=== PATIENT | female | born 1935 | race Caucasian/White ===

== ENCOUNTER → 2017-09-19 | Outpatient (CLI) | payer MEDICARE | LOC: M.MRI 13:59 | DX: I67.82 Cerebral ischemia (principal); G31.89 Other specified degenerative diseases of nervous system; Z95.1 Presence of aortocoronary bypass graft ==

== ENCOUNTER → 2018-06-25 | Outpatient (CLI) | payer MEDICARE | LOC: M.RAD 13:41 | DX: Z12.31 Encounter for screening mammogram for malignant neoplasm of breast (principal); M85.851 Other specified disorders of bone density and structure, right thigh; M85.852 Other specified disorders of bone density and structure, left thigh; Z78.0 Asymptomatic menopausal state; Z88.0 Allergy status to penicillin; Z91.040 Latex allergy status ==

== ENCOUNTER 2021-02-01 13:38 | Inpatient (IN) | payer MEDICARE ==
[~2021-02-01] VITALS: Ht 157.5 cm; Wt 81.6 kg
[2021-02-01 13:39] VITALS: BP 139/96
[2021-02-01 13:56] LABS: ABSOLUTE BASOPHILS 0.1 thou/uL (0.0-0.2); ABSOLUTE EOSINOPHILS 0.1 thou/uL (0.0-0.7); ABSOLUTE LYMPHOCYTES 1.3 thou/uL (0.8-5.3); ABSOLUTE MONOCYTES 0.8 thou/uL (0.0-1.2); ABSOLUTE NEUTROPHILS 5.9 thou/uL (1.6-8.1); BASOPHILS 0.9 %; EOSINOPHILS 1.6 %; HEMATOCRIT 38.2 % (37.0-47.0); HEMOGLOBIN 12.9 gm/dL (12.0-15.0); LYMPHOCYTES 15.7 %; MCH 31.8 pg (26.0-34.0); MCHC 33.9 g/dL (28.0-37.0); MCV 93.8 fL (80.0-100.0); MONOCYTES 9.9 %; MPV 8.8 fl. (7.2-11.1); NUCLEATED RBCS 0 /100WBC; PLATELET COUNT* 322 thou/uL (150-400); POLYS 71.9 %; RBC 4.07 mil/uL (4.20-5.00); RDW-CV 13.8 % (10.5-14.5); WBC 8.2 thou/uL (4.0-11.0)
[2021-02-01 14:07] LABS: CALCIUM 8.8 mg/dL (8.5-10.1); CREATININE 0.9 mg/dL (0.6-1.3); POTASSIUM 3.1 mmol/L (3.5-5.1)
[2021-02-01 14:19] LABS: ALBUMIN 2.9 g/dL (3.4-5.0); TOTAL BILIRUBIN 0.7 mg/dL (<0.1-1.0); TOTAL PROTEIN 6.7 g/dL (6.4-8.2)
--- NOTE | 2021-02-01 14:54 | EKG ---
[place] [address] ELECTROCARDIOGRAM REPORT Name: STEPHANIE ANDERSON Room: [facility]#: [id number] Admission: 02/01/21 Attend Phys: Discharge: Date of : 39 Date of Service: 02/01/21 1410 Report #: [id number] THIS REPORT FOR: //name// [facility] ED Test Date: 2021-02-01 Test Time: 14:10:41 Pat Name: STEPHANIE ANDERSON Department: Room: Gender: F Director Of Corporate Sponsorships: [facility] : 1935 Requested By: Sen Abdullahi Order Number: [id number] MD: Jamie Pineda Measurements Intervals [place] Rate: 72 P: 43 MD: 243 QRS: -6 QRSD: 93 T: 162 QT: 437 QTc: 479 Interpretive Statements Sinus rhythm Prolonged MD interval Probable left atrial enlargement LVH with secondary repolarization abnormality Inferior infarct, old Compared to ECG 12/18/2006 10:12:22 First degree AV block now present Electronically Signed On 02-01-2021 14:54:50 CLAIMS PROCESSOR by Jamie Pineda [email or web address] <ELECTRONICALLY SIGNED> By: Jamie Pineda MD, FACC 02/01/21 1454 141 1410 Jamie Pineda MD, [facility] /EPI
[2021-02-01 18:15] VITALS: BP 130/72
[2021-02-01 22:00] VITALS: BP 135/70
[2021-02-02] VITALS (7 sets, daily range): BP systolic 115–145; BP diastolic 59–74
[2021-02-02 04:19] LABS: ANION GAP 9 mmol/L (7-16); BUN 14 mg/dL (7-18); CALCIUM 8.7 mg/dL (8.5-10.1); CHLORIDE 100 mmol/L (98-107); CHOLESTEROL 168 mg/dL (<200); CO2 30 mmol/L (21-32); CREATININE 0.9 mg/dL (0.6-1.3); GLUCOSE 161 mg/dL (70-99); HDL CHOLESTEROL 43 mg/dL (>40); LDL CHOLESTEROL 101 mg/dL (<100); POTASSIUM 3.5 mmol/L (3.5-5.1); SODIUM 139 mmol/L (136-145); TC:HDL 3.9 Ratio (Not establshd); TRIGLYCERIDE 120 mg/dL (<150); VLDL 24 mg/dL (<40)
[2021-02-02 04:24] LABS: SERUM ASSESSMENT CLEAR
--- NOTE | 2021-02-02 08:49 | NUR ---
ALISEMARY ANNE HARPER, PT'S NEIGHBOR, HAS PERMISSION TO TALK TO STAFF REGARDING PT'S POC PER PT. SHE CAN BE REACHED AT [phone].
[2021-02-02] MEDS ORDERED: PRED FORTE 1% EY5 M1 OPHTHALMIC (10:09)
[2021-02-02] MEDS ORDERED: PROTONIX40 M2 PO (10:09)
[2021-02-02] MEDS ORDERED: NORVASC10 MG PO (10:09)
[2021-02-02] MEDS ORDERED: ACYCLOVIR 400400 MG PO (10:10)
[2021-02-02] MEDS ORDERED: TOPROL XL100 MG PO (10:10)
[2021-02-02] MEDS ORDERED: PRINIVIL40 MG PO (10:10)
[2021-02-02] MEDS ORDERED: PRAVASTATIN SOD80 MG PO (10:10)
--- NOTE | 2021-02-02 10:38 | NUR ---
ADMISSION COMPLETED IN ED A BOARDED PATIENT. HEAD TO TOE ASSEMENT NEEDS COMPLETED ONCE PATIENT IS ON THE FLOOR. FOLLOW ED CHARTING FOR VITALS AND ASSESSMENTS UNTIL THEN.
[2021-02-02] MEDS ORDERED: ASA81BEC PO (11:54)
[2021-02-02] MEDS ORDERED: COQ-1030 MG PO (11:55)
[2021-02-02] MEDS ORDERED: VITAMIN D350 MCG PO (11:55)
--- NOTE | 2021-02-02 12:10 | 2DMMODE ---
[place] [address] 2 D/M-MODE ECHOCARDIOGRAM Name: STEPHANIE ANDERSON Room: [facility] [facility].#: [id number] Admission: 02/01/21 Attend Phys: Shad Rico Discharge: Date of : 39 Date of Service: 02/02/21 1210 Report #: [id number] THIS REPORT FOR: cc: Yahaira Abbasi Linda J. DO Liston, Michael J. MD [facility] ~ APPROVED REPORT Study performed: 02/02/2021 10:37:32 EXAM: Comprehensive 2D, Doppler, and color-flow Echocardiogram Patient Location: In-Patient Room #: er Status: routine BSA: 1.83 HR: 74 bpm BP: 125/72 mmHg Rhythm: NSR Other Information Study Quality: Good Indications Congestive Heart Failure 2D Dimensions IVSd: 7.66 (7-11mm) LVOT Diam: 19.19 (18-24mm) LVDd: 50.05 mm PWd: 9.38 (7-11mm) Ascending Ao: 27.73 (22-36mm) LVDs: 46.73 (25-40mm) Aortic Root: 30.58 mm Volumes Left Atrial Volume (Systole) LA ESV Index: 40.50 mL/m2 Aortic Valve AoV Peak Mendez.: 0.92 m/s AO Peak Gr.: 3.36 mmHg LVOT Max P.45 mmHg AO Mean Gr.: 2.18 mmHg LVOT Mean P.81 mmHg LVOT Max V: 0.60 m/s AO V2 VTI: 21.28 cm LVOT Mean V: 0.42 m/s KAN (VTI): 2.02 cm2 LVOT V1 VTI: 14.84 [place] [address] 2 D/M-MODE ECHOCARDIOGRAM Name: STEPHANIE ANDERSON Room: [address] IN .R.#: [id number] Admission: 02/01/21 Attend Phys: Shad Rico Discharge: Date of : 39 Date of Service: 02/02/21 1210 Report #: [id number] Mitral Valve E/A Ratio: 1.18 MV Decel. Time: 178.19 ms MV E Max Mendez.: 1.14 m/s MV PHT: 51.67 ms MVA (PHT): 4.26 cm2 TDI E/Lateral E': 19.00 E/Medial E': 22.80 Medial E' Mendez.: 0.05 m/s Lateral E' Mendez.: 0.06 m/s Pulmonary Valve PV Peak Mendez.: 0.77 m/s PV Peak Gr.: 2.39 mmHg Tricuspid Valve RAP Estimate: 5.00 mmHg TR Peak Gr.: 31.43 mmHg RVSP: 36.00 mmHg PA Pressure: 36.00 mmHg Left Ventricle The left ventricle appears mildly dilated. 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 The mid to apical septum anterior wall and apex is akinetic. There is normal left ventricular wall thickness. Left ventricular systolic function is severely decreased. LVEF is 20-25%. Transmitral Doppler flow pattern suggests restrictive physiology. Right Ventricle The right ventricle is normal size. The right ventricular systolic function is normal. Atria Left atrium is mildly dilated. The right atrium size is normal. Aortic Valve Mild aortic valve sclerosis. No aortic regurgitation is present. There is no aortic valvular stenosis. Mitral Valve There is mitral annular calcification. Trace mitral regurgitation. No evidence of mitral valve stenosis. Tricuspid Valve The tricuspid valve is normal in structure[place] [address] 2 D/M-MODE ECHOCARDIOGRAM Name: STEPHANIE ANDERSON Room: [address] IN [facility]#: [id number] Admission: 02/01/21 Attend Phys: Shad Rico Discharge: Date of : 39 Date of Service: 02/02/21 1210 Report #: [id number] regurgitation. Mild pulmonary hypertension. Pulmonic Valve The pulmonary valve is normal in structure. Mild pulmonic regurgitation. Great Vessels The aortic root is normal in size. IVC is normal in size and collapses >50% with inspiration. Pericardium There is no pericardial effusion. <Conclusion> The left ventricle appears mildly dilated. 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 There is normal left ventricular wall thickness. Left ventricular systolic function is severely decreased. LVEF is 20-25%. Transmitral Doppler flow pattern suggests restrictive physiology. The mid to apical septum anterior wall and apex is akinetic. Left atrium is mildly dilated. Mild aortic valve sclerosis. Trace mitral regurgitation. Mild tricuspid regurgitation. Mild pulmonary hypertension. IVC is normal in size and collapses >50% with inspiration. <ELECTRONICALLY SIGNED> By: Scar Jimenez MD, FACC 02/02/21 121 09 09 Scar Jimenez MD, FACC /INF
--- NOTE | 2021-02-02 12:25 | EKG ---
[place] [address] ELECTROCARDIOGRAM REPORT Name: STEPHANIE ANDERSON Room: [place] [address] ADM IN .R.#: [id number] Admission: 02/01/21 Attend Phys: Shad Rico Discharge: Date of : 39 Date of Service: 02/02/21 0943 Report #: [id number] THIS REPORT FOR: //name// [facility] ED Test Date: 2021-02-02 Test Time: 09:43:52 Pat Name: STEPHANIE ANDERSON Department: Room: [place] [address] Gender: F Digital Photographic Printer: COCO : 1935 Requested By: Jamie Pineda Order Number: [id number] Reading MD: Sacr Jimenez Measurements Intervals [place] Rate: 79 P: 57 LA: 248 QRS: -4 QRSD: 92 T: 161 QT: 416 QTc: 477 Interpretive Statements Sinus rhythm Prolonged LA interval LVH with secondary repolarization abnormality Inferior infarct, old Anterolateral infarct, age indeterminate Compared to ECG 02/01/2021 14:10:41 No significant changes Electronically Signed On 02-02-2021 12:25:03 DIGITAL MEDIA BUYER by Scra Jimenez [email or web address] <ELECTRONICALLY SIGNED> By: Scar Jimenez MD, FACC 02/02/21 1225 0943 Scar Jimenez MD, FAC /EPI
[2021-02-03] VITALS (7 sets, daily range): BP systolic 121–145; BP diastolic 54–68
--- NOTE | 2021-02-03 05:20 | NUR ---
ASSUMED PT CARE AT APPROX 1930. PT IS AWAKE AND ORIENTED X4. PT IS TRACING SR WITH 1D AVB, PT IS SHORT OF AIR WITH ACTIVITY, BUT NO DESATURATIONS NOTED ON 2L OF O2/NC. PT C/O "CHEST PAIN/INDIGESTION" THAT WAS DESCRIBED TO BE CLOSER TO THE ABDOMEN AND IS RADIATING TO THE BACK WHICH LASTED FOR A "MINUTE OR SO" EKG DONE, DR ACOSTA INFORMED. PT REFUSES PAIN MEDS PAIN IS GONE. PROTONIX GIVEN WITH RELIEF. PT IS CLOSELY MONITORED. FALL PRECAUTIONS IN PLACE.
[2021-02-03 09:09] LABS: HEMATOCRIT 38.7 % (37.0-47.0); HEMOGLOBIN 12.9 gm/dL (12.0-15.0); MCH 31.3 pg (26.0-34.0); MCHC 33.2 g/dL (28.0-37.0); MCV 94.5 fL (80.0-100.0); MPV 9.4 fl. (7.2-11.1); RBC 4.1 mil/uL (4.20-5.00); RDW-CV 14.1 % (10.5-14.5); WBC 10.3 thou/uL (4.0-11.0)
[2021-02-03 09:19] LABS: CALCIUM 8.9 mg/dL (8.5-10.1); CREATININE 1.1 mg/dL (0.6-1.3); POTASSIUM 3.9 mmol/L (3.5-5.1)
--- NOTE | 2021-02-03 10:52 | NUR ---
CM COMPLETED INITIAL ASSESSMENT TO DISCUSS DIPSO AND HOME SITUATION. PT LIVES ALONE IN HOUSE W/STAIRS TO BASEMENT TO LAUNDRY ROOM. PT COMPLETED OWN CHORES/LAUNDRY AND INDICATED SHE HAS NO PROBLEMS NAVIGATING THE STAIRS INSIDE HER HOME. PT DRIVES A VEHICLE. PT COMPLETES OWN ADLS. PT DENIES USE ON DMES, OR HX WITH HH/SNF. PT ADMITTED WITH ACUTE SYSTOLIC HEART FAILURE. S/P CABG. LASIX SWITCH TO PO. POSS D/C TOMORROW TO HOME, PT MAY BENEFIT FROM HH. CM FAXED REFRERRAL TO [facility]. [phone].
--- NOTE | 2021-02-03 11:20 | EKG ---
[place] [address] ELECTROCARDIOGRAM REPORT Name: STEPHANIE ANDERSON Room: [address] ADM IN M.R.#: [id number] Admission: 02/01/21 Attend Phys: Shad Rico Discharge: Date of : 39 Date of Service: 02/03/21 0009 Report #: [id number] THIS REPORT FOR: //name// [facility] Test Date: 2021-02-03 Test Time: 00:09:05 Pat Name: STEPHANIE ANDERSON Department: Room: [address] Gender: F Spindle Tester: BXIONG : 1935 Requested By: Shad Rico Order Number: [id number] Reading MD: Jamie Pineda Measurements Intervals [place] Rate: 82 P: 62 NV: 235 QRS: -10 QRSD: 98 T: 154 QT: 421 QTc: 492 Interpretive Statements Sinus rhythm Prolonged NV interval LVH with secondary repolarization abnormality Probable inferior infarct Anterior infarct, old Baseline wander in lead(s) I Compared to ECG 02/02/2021 09:43:52 No significant changes Electronically Signed On 02-03-2021 11:20:29 AUTOMOBILE BUMPER STRAIGHTENER by Jamie Pineda [email or web address] <ELECTRONICALLY SIGNED> By: Jamie Pineda MD, FACC 02/03/21 1120 000 0009 Jamie Pineda MD, FACC /EPI
--- NOTE | 2021-02-03 15:15 | CON ---
[address] [address] CONSULTATION Name: STEPHANIE ANDERSON Room: [address] IN M.R.#: [id number] Admission: 02/01/21 Attend Phys: Angelica Jones Discharge: Date of : 39 Report #: [id number] THIS REPORT FOR: cc: Yahaira Abbasi,Yahaira Campos,Jamie Lisa MD [facility] ~ cc: Yahaira Abbasi DO DATE OF CONSULTATION: 02/01/2021 CARDIOLOGY CONSULTATION HISTORY OF PRESENT ILLNESS: The patient is an 85-year-old single white female who came to the Emergency Room complaining of shortness of breath. The patient notes in 2006, she had quadruple coronary bypass surgery at [facility]. She has been followed by Dr. Angulo since that time. Recently, she has been having increasing shortness of breath and edema. She notes it makes it hard to breathe. She denies chest tightness with exertion, palpitations, syncope, fever or cough. She finally came to the Emergency Room today and is admitted for further evaluation and treatment. PAST MEDICAL HISTORY: She has had tonsillectomy. She has a history of hypertension, hyperlipidemia. CURRENT MEDICATIONS: Consist of metoprolol, lisinopril, aspirin, Pravachol. ALLERGIES: SHE HAS AN ALLERGY TO PENICILLIN. FAMILY HISTORY: Her mom had bypass surgery. SOCIAL HISTORY: She is , lives here in [place]. No smoking, alcohol abuse. REVIEW OF SYSTEMS: She is overweight, being 5 feet 2 inches, 180 pounds. No history of stroke, asthma, liver disease, kidney disease, cancer, psychiatric illness, chronic skin condition. PHYSICAL EXAMINATION: GENERAL: Revealed an elderly female who appeared in no acute distress. VITAL SIGNS: She had a blood pressure of 130/80, pulse is 90. She is afebrile. HEENT: She is anicteric. Conjunctivae pink. Mucous membranes moist. NECK: Veins do not appear distended. No carotid bruits. Neck is supple. CHEST: Revealed decreased breath sounds at the bases. HEART: Regular rate and rhythm. No murmur. ABDOMEN: [place] [address] CONSULTATION Name: STEPHANIE ANDERSON Room: [address]#: [id number] Admission: 02/01/21 Attend Phys: Angelica Jones Discharge: Date of : 39 Report #: [id number] EXTREMITIES: Had trace edema. Dorsalis pedis pulse cannot be palpated. SKIN: Cool and dry. NEUROLOGIC: Nonfocal. LYMPHATIC: No adenopathy. MUSCULOSKELETAL: Joint effusion. LABORATORY DATA: Her ECG on admission showed a sinus rhythm, left ventricular hypertrophy and repolarization changes. Her workup, she had a portable chest x-ray in the Emergency Room that showed cardiomegaly, pulmonary vascular congestion. She actually had a CT scan of the chest using a PE protocol that showed a hiatal hernia, cardiomegaly, no pulmonary embolus, atelectasis, vascular congestion. Her lab work, creatinine 0.9, albumin 2.9. High sensitivity troponin was 566. BNP 8006. Hemoglobin 12.9. Her COVID antigen stat test was negative. IMPRESSION AND RECOMMENDATIONS: 1. Pulmonary edema. I would recommend echocardiogram. I would give Lasix. 2. Coronary artery disease. Borderline troponin. I would not recommend cardiac catheterization at this time. I would continue aspirin a day. 3. Hypertension. The patient is on beta hodan and Jesus inhibitor. 4. Hyperlipidemia. The patient is on a statin drug. 5. Obesity. <ELECTRONICALLY SIGNED> By: Jamie Pineda MD, FACC 02/03/21 1515 151 1905Jamie Pineda MD, FACC /nt
[2021-02-04 00:01] VITALS: BP 153/69
[2021-02-04 03:06] LABS: GLYCOHEMOGLOBIN (HGB A1C) 5.7 % (4.8-5.6)
[2021-02-04 04:00] VITALS: BP 133/56
[2021-02-04 04:58] LABS: CREATININE 1.2 mg/dL (0.6-1.3); POTASSIUM 4.2 mmol/L (3.5-5.1)
--- NOTE | 2021-02-04 05:48 | NUR ---
PT AO X4 LYING IN BED FOR ASSESSMENT. SHE IS MISSING HER DOG AND IS ANXIOUS TO GO HOME SOON. PT LUNGS ARE DIMINISHED THROUGHOUT WITH PT DENYING COUGH. SHE IS ON 1L PER NC WITH SAT>92%. PT HAS 1+EDEMA IN BLE. UP TO BSC WITH STANDBY. BED ALARM ON AND CALL LIGHT WITHIN REACH FOR PT SAFETY
[2021-02-04 09:00] VITALS: BP 132/64
[2021-02-04] MEDS ORDERED: KLOR-CON M2020 MEQ PO (11:29)
[2021-02-04] MEDS ORDERED: SPIRONOLACTONE25 MG PO (11:29)
[2021-02-04] MEDS ORDERED: LASIX 40 MG TAB40 M1 PO (11:29)
[2021-02-04] MEDS ORDERED: LIPITOR 40 MG T40 M1 PO (11:29)
[2021-02-04 12:30] VITALS: BP 129/59
[2021-02-04 16:22] VITALS: BP 124/56
--- NOTE | 2021-02-04 20:45 | NUR ---
PT D/C TO HOME AFTER PASSING REST AND EXERCISE TEST. DAY SHIFT RN COMPLETED D/C AND WENT OVER WITH PT. REMOVED MONITOR AND IV. ALL BELONGINGS GATHERED AND TAKEN BY WHEELCHAIR TO FRIENDS CAR AT [address]. CALLED DR BEFORE DISCHARGE REGARDING 2 STATINS ORDERED, CLARIFIED TO HAVE PT TAKE HOME STATIN, NOT NEW STATIN. PT LEFT IN [facility].
--- NOTE | 2021-02-07 08:08 | EKG ---
[place] [address] ELECTROCARDIOGRAM REPORT Name: STEPHANIE ANDERSON Room: [address] DIS IN M.R.#: [id number] Admission: 02/01/21 Attend Phys: Shad Rico Discharge: 02/04/21 Date of : 39 Date of Service: 02/04/21814 Report #: [id number] THIS REPORT FOR: //name// [facility] Test Date: 2021-02-04 Test Time: 08:15:49 Pat Name: STEPHANIE ANDERSON Department: Room: [address] Gender: F Vocational Training Director: JENNIFER : 1935 Requested By: Jamie Pineda Order Number: [id number] Reading MD: Scar Jimenez Measurements Intervals [place] Rate: 74 P: 39 NH: 229 QRS: 4 QRSD: 108 T: 165 QT: 418 QTc: 464 Interpretive Statements Sinus rhythm Prolonged [place] interval Left atrial enlargement LVH with secondary repolarization abnormality Inferior infarct, old Probable anterior infarct, age indeterminate Compared to ECG 02/03/2021 00:09:05 No significant changes Electronically Signed On 02-07-2021 8:08:45 DRY JANITOR by Scar Jimenez [email or web address] <ELECTRONICALLY SIGNED> By: Scar Jimenez MD, FACC 02/07/21807 4 4 Scar Jimenez MD, FACC /EPI
== END 2021-02-04 20:30 | disposition home or self-care (01) | DRG 291 ==
LOC: M.ERS 13:38 → M.TBA-ER 14:51 → M.ORTHSURG 02-02 15:40
PROVIDERS: Family Medicine; Internal Medicine; Internal Medicine Cardiovascular Disease; ADMIT Internal Medicine; ATTEND Internal Medicine
DX: I11.0 Hypertensive heart disease with heart failure (principal); I50.23 Acute on chronic systolic (congestive) heart failure; J98.11 Atelectasis; Z88.8 Allergy status to other drugs, medicaments and biological substances; Z91.040 Latex allergy status; Z88.0 Allergy status to penicillin; Z95.1 Presence of aortocoronary bypass graft; E11.9 Type 2 diabetes mellitus without complications; K44.9 Diaphragmatic hernia without obstruction or gangrene; I25.10 Atherosclerotic heart disease of native coronary artery without angina pectoris; E78.5 Hyperlipidemia, unspecified; E66.01 Morbid (severe) obesity due to excess calories; Z68.32 Body mass index [BMI] 32.0-32.9, adult; K21.9 Gastro-esophageal reflux disease without esophagitis; Z90.49 Acquired absence of other specified parts of digestive tract; Z20.822 Contact with and (suspected) exposure to COVID-19

== ENCOUNTER 2021-02-28 11:26 | Inpatient (IN) | payer MEDICARE ==
[~2021-02-28] VITALS: Ht 157.5 cm; Wt 76.2 kg
[~2021-02-28 11:26] MED LIST: ACYCLOVIR 400400 MG PO; ASA81BEC PO; COQ-1030 MG PO; KLOR-CON M2020 MEQ PO; LASIX 40 MG TAB40 M1 PO; LIPITOR 40 MG T40 M1 PO; NORVASC10 MG PO; PRAVASTATIN SOD80 MG PO; PRED FORTE 1% EY5 M1 OPHTHALMIC; PRINIVIL40 MG PO; PROTONIX40 M2 PO; SPIRONOLACTONE25 MG PO; TOPROL XL100 MG PO; VITAMIN D350 MCG PO
[2021-02-28 11:27] VITALS: BP 104/48
[2021-02-28] MEDS ORDERED: SPIRONOLACTONE25 MG PO (11:50)
[2021-02-28 12:15] LABS: ABSOLUTE BASOPHILS 0.1 thou/uL (0.0-0.2); ABSOLUTE EOSINOPHILS 0.2 thou/uL (0.0-0.7); ABSOLUTE LYMPHOCYTES 0.7 thou/uL (0.8-5.3); ABSOLUTE MONOCYTES 0.8 thou/uL (0.0-1.2); ABSOLUTE NEUTROPHILS 6.2 thou/uL (1.6-8.1); BASOPHILS 0.9 %; EOSINOPHILS 2.6 %; HEMATOCRIT 42.3 % (37.0-47.0); HEMOGLOBIN 13.7 gm/dL (12.0-15.0); LYMPHOCYTES 8.7 %; MCHC 32.4 g/dL (28.0-37.0); MCV 95.6 fL (80.0-100.0); MONOCYTES 9.9 %; MPV 10.4 fl. (7.2-11.1); NUCLEATED RBCS 0 /100WBC; PLATELET COUNT* 212 thou/uL (150-400); POLYS 77.9 %; RBC 4.43 mil/uL (4.20-5.00); RDW-CV 15.1 % (10.5-14.5); WBC 7.9 thou/uL (4.0-11.0)
[2021-02-28 12:28] LABS: CALCIUM 9.7 mg/dL (8.5-10.1); CREATININE 3.7 mg/dL (0.6-1.3)
--- NOTE | 2021-02-28 12:28 | EKG ---
[place] [address] ELECTROCARDIOGRAM REPORT Name: STEPHANIE ANDERSON Room: [facility]#: [id number] Admission: 02/28/21 Attend Phys: Discharge: Date of : 39 Date of Service: 02/28/21 1131 Report #: [id number] THIS REPORT FOR: //name// [facility] ED Test Date: 2021-02-28 Test Time: 11:31:09 Pat Name: STEPHANIE ANDERSON Department: Room: Gender: F Cosmetics Counter Manager: TJO : 1935 Requested By: Rani Crooks Order Number: [id number] MD: Jamie Pineda Measurements Intervals [place] Rate: 60 P: -17 AR: 219 QRS: -8 QRSD: 110 T: 151 QT: 428 QTc: 428 Interpretive Statements Sinus rhythm Borderline prolonged AR interval LVH with IVCD and secondary repol abnrm Probable inferior infarct Anterolateral infarct, age indeterminate Compared to ECG 02/04/2021 08:15:49 Atrial abnormality no longer present Myocardial infarct finding still present Electronically Signed On 02-28-2021 12:27:54 CHILD CARE SPECIALIST by Jamie Pineda [email or web address] <ELECTRONICALLY SIGNED> By: Jamie Pineda MD, FACC 02/28/21 1227 1131 1131 Jamie Pineda MD, FACC /EPI
[2021-02-28 12:33] LABS: POTASSIUM 6.9 mmol/L (3.5-5.1)
[2021-02-28 12:38] LABS: ALBUMIN 3.6 g/dL (3.4-5.0); MAGNESIUM 2.1 mg/dL (1.8-2.4); TOTAL BILIRUBIN 0.6 mg/dL (<0.1-1.0); TOTAL PROTEIN 7.3 g/dL (6.4-8.2)
--- NOTE | 2021-02-28 17:57 | NUR ---
PATIENT UNABLE TO URINATE, AND ONLY IN SMALL AMOUNTS
[2021-02-28 21:11] VITALS: BP 131/62
[2021-02-28 22:39] LABS: URINE BILIRUBIN NEGATIVE (Negative); URINE BLOOD NEGATIVE (Negative); URINE CLARITY CLEAR; URINE COLOR YELLOW; URINE GLUCOSE-RANDOM NEGATIVE (Negative); URINE KETONES NEGATIVE (Negative); URINE LEUKOCYTES-REFLEX 1+ (Negative); URINE NITRITE-REFLEX NEGATIVE (Negative); URINE PROTEIN NEGATIVE (Negative); URINE UROBILINOGEN 0.2 E.U./dl (0.2-1.0)
[2021-02-28 22:55] LABS: HYALINE CASTS 0-3 Few /LPF (None Seen); SQUAMOUS 0-3 Few /LPF (0-3)
[2021-02-28 22:56] LABS: URINE RBC None Seen /HPF (0-2); URINE WBC-REFLEX 6-15 Few /HPF (0-5)
[2021-02-28 22:57] LABS: CRYSTALS None Seen /LPF (None Seen); RENAL EPITHELIAL CELLS 0-3 Few /LPF (None Seen)
[2021-03-01 02:01] VITALS: BP 102/33
[2021-03-01 04:28] LABS: ALBUMIN 2.9 g/dL (3.4-5.0); CALCIUM 9.3 mg/dL (8.5-10.1); MAGNESIUM 1.9 mg/dL (1.8-2.4); PHOSPHORUS* 3.9 mg/dL (2.5-4.9)
[2021-03-01 05:04] LABS: CREATININE 2.3 mg/dL (0.6-1.3); POTASSIUM 4.8 mmol/L (3.5-5.1)
[2021-03-01 07:44] VITALS: BP 100/43
[2021-03-01 09:54] VITALS: BP 109/46
--- NOTE | 2021-03-01 10:35 | CON ---
[address] [address] CONSULTATION Name: STEPHANIE ANDERSON Room: [address] IN M.R.#: [id number] Admission: 02/28/21 Attend Phys: Angelica Jones Discharge: Date of : 39 Report #: [id number] THIS REPORT FOR: cc: Yahaira Abbasi Linda J. DO Khan,Sasha Lisa MD ~ DATE OF CONSULTATION: 02/28/2021 NEPHROLOGY CONSULTATION REASON FOR CONSULTATION: Acute kidney injury and hyperkalemia. HISTORY OF PRESENT ILLNESS: An 85-year-old female who has no underlying known history of kidney disease, who was hospitalized in January with acute systolic heart failure. She, at that time, was started on Lasix, spironolactone and potassium supplementation and was already on lisinopril. She has had two labs done through her primary physician, Dr. Abbasi and tells me that each time she had been seen, her BUN and creatinine were both increasing. She was referred to [facility] as a new patient and actually to be seen today for the first time in our office; however, has been having weakness and diarrhea for the past 3 days with some reduced intake and upon arrival here was found to have a potassium of 6.9, creatinine 3.7. Denies any NSAID use. Appears to be comfortable, has no other complaints at present time. Denies any recent antibiotics. REVIEW OF SYSTEMS: Constitutional, psych, heme, eyes, ENT, respiratory, cardiac, GI, , endocrine, all negative except as documented above. PAST MEDICAL HISTORY: Coronary artery disease with history of quadruple bypass in 2006, hypertension, dyslipidemia, history of CHF, dyslipidemia. SOCIAL HISTORY: No tobacco. FAMILY HISTORY: Not pertinent in this 85-year-old female. CURRENT MEDICATIONS: Reviewed. PHYSICAL EXAMINATION: VITAL SIGNS: Blood pressure is ____, pulse 66, respirations 16, temperature 36.2. GENERAL: No acute distress. EYES: Open. EARS: Externally normal. NECK: Supple. CARDIOVASCULAR: [place] [address] CONSULTATION Name: STEPHANIE ANDERSON Room: [address] IN [facility]#: [id number] Admission: 02/28/21 Attend Phys: Angelica Jones Discharge: Date of : 39 Report #: [id number] LUNGS: No crackles. GASTROINTESTINAL: Negative. MUSCULOSKELETAL: Nontender. PSYCHIATRIC: Awake, alert. LABORATORY DATA: White cell count 7.9, hemoglobin 13.7, platelets 212. Sodium 131, potassium 6.9, chloride 99, bicarbonate 19, BUN 88, creatinine 3.7, glucose 114, calcium 9.7, magnesium 2.1, albumin 3.6. ASSESSMENT AND PLAN: 1. Acute kidney injury with admission creatinine of 3.7, BUN of 88. On 02/04, creatinine was 1.2 and on 02/01, it was 0.9, this is in the setting of recently starting Lasix, spironolactone and potassium supplement while already being on lisinopril and recently having diarrhea as well as reduced oral intake. Chest x-ray was okay. 2. Hyperkalemia secondary to renal insufficiency, while also newly starting spironolactone, potassium supplement and while also on lisinopril. 3. Mild hyponatremia, possibly component of volume depletion. 4. Metabolic acidosis with a CO2 of 19 on admission, in the setting of diarrhea. 5. Coronary artery disease with history of 4-vessel CABG in 2006. 6. Diabetes. 7. Hypertension. 8. Congestive heart failure with reduced systolic function and EF of 20-25% in 01/2021. Echo with mild pulmonary hypertension. PLAN: 1. We will hydrate with half normal saline and sodium bicarbonate. 2. We will recheck potassium later this evening. 3. Two gram dietary potassium restriction. 4. Check renal ultrasound. 5. Check UA. 6. Hold spironolactone, potassium supplement, Lasix and lisinopril. 7. Check UA with micro along with magnesium. 8. Diarrhea management per primary service. We will follow along with you. Thank you for requesting my opinion in the care and management of this patient. <ELECTRONICALLY SIGNED> By: Sasha Tim MD 03/01/21 1035 1228 [id number] Tim MD /nt
[2021-03-01 16:48] VITALS: BP 131/58
[2021-03-01 19:30] VITALS: BP 133/61
[2021-03-02 00:30] VITALS: BP 118/42
[2021-03-02 04:21] VITALS: BP 109/43
[2021-03-02 04:58] LABS: ABSOLUTE BASOPHILS 0.1 thou/uL (0.0-0.2); ABSOLUTE EOSINOPHILS 0.3 thou/uL (0.0-0.7); ABSOLUTE LYMPHOCYTES 1.2 thou/uL (0.8-5.3); ABSOLUTE MONOCYTES 0.9 thou/uL (0.0-1.2); ABSOLUTE NEUTROPHILS 3.5 thou/uL (1.6-8.1); BASOPHILS 1.2 %; EOSINOPHILS 4.5 %; HEMATOCRIT 33.6 % (37.0-47.0); MCH 31.1 pg (26.0-34.0); MCV 94.2 fL (80.0-100.0); MONOCYTES 14.9 %; MPV 10.4 fl. (7.2-11.1); NUCLEATED RBCS 0 /100WBC; PLATELET COUNT* 147 thou/uL (150-400); POLYS 59.4 %; RBC 3.57 mil/uL (4.20-5.00); RDW-CV 14.8 % (10.5-14.5)
[2021-03-02 05:16] LABS: ALBUMIN 2.5 g/dL (3.4-5.0); CREATININE 1.4 mg/dL (0.6-1.3); POTASSIUM 4.1 mmol/L (3.5-5.1); TOTAL BILIRUBIN 0.5 mg/dL (<0.1-1.0); TOTAL PROTEIN 5.2 g/dL (6.4-8.2)
[2021-03-02 05:42] LABS: HEMOGLOBIN 11.1 gm/dL (12.0-15.0)
[2021-03-02 08:00] VITALS: BP 142/66
[2021-03-02 13:01] VITALS: BP 122/50
[2021-03-02 15:35] VITALS: BP 110/48
[2021-03-02 19:56] VITALS: BP 138/60
[2021-03-03] VITALS: BP 135/51
[2021-03-03 08:00] VITALS: BP 119/63
--- NOTE | 2021-03-03 10:10 | NUR ---
PLAN OF CARE: PLAN FOR PT TO D/C HOME WITH HH AT D/C WHEN MEDICALLY STABLE. CM WILL REMAIN AVAILABLE TO ASSIST AND FOLLOW NEEDED.
[2021-03-03 11:12] LABS: CALCIUM 8.7 mg/dL (8.5-10.1); CREATININE 1.2 mg/dL (0.6-1.3); MAGNESIUM 1.7 mg/dL (1.8-2.4); POTASSIUM 3.9 mmol/L (3.5-5.1)
[2021-03-03 11:13] VITALS: BP 119/63
[2021-03-03 12:31] VITALS: BP 119/63
--- NOTE | 2021-03-03 15:00 | NUR ---
ASSUMED PT CARE AT 1930. ASSESSMENT COMPLETED CHARTED. ABLE TO MAKE NEEDS KNOWN. NO C/O PAIN OR DISCOMFORT. UP WITH WALKER. DISCHARGE COMPLETED AND WENT OVER WITH PATIENT. PT SISTER CAME UP AND SECURITY TOOK PT TO SISTERS CAR. IV REMOVED. ALL BELONGINGS TAKEN WITH HER.
== END 2021-03-03 14:50 | disposition home health service (06) | DRG 682 ==
LOC: M.ERS 11:26 → M.TBA-ER 13:16 → M.2W 03-01 10:24
PROVIDERS: Internal Medicine; Internal Medicine Nephrology; Nurse Practitioner Family; ADMIT Internal Medicine; ATTEND Internal Medicine
DX: N17.0 Acute kidney failure with tubular necrosis (principal); G93.41 Metabolic encephalopathy; A08.39 Other viral enteritis; E87.1 Hypo-osmolality and hyponatremia; E44.0 Moderate protein-calorie malnutrition; I50.22 Chronic systolic (congestive) heart failure; E78.5 Hyperlipidemia, unspecified; I11.0 Hypertensive heart disease with heart failure; K21.9 Gastro-esophageal reflux disease without esophagitis; E87.5 Hyperkalemia; I25.10 Atherosclerotic heart disease of native coronary artery without angina pectoris; Z20.822 Contact with and (suspected) exposure to COVID-19; E66.9 Obesity, unspecified; M62.838 Other muscle spasm; E11.9 Type 2 diabetes mellitus without complications; Z98.49 Cataract extraction status, unspecified eye; Z88.0 Allergy status to penicillin; Z91.040 Latex allergy status; Z68.30 Body mass index [BMI] 30.0-30.9, adult; Z28.21 Immunization not carried out because of patient refusal